=== PATIENT | female | born 1980 | race Caucasian/White ===

== ENCOUNTER 2018-04-11 07:18 | Inpatient (IN) | payer BC ==
[~2018-04-11] VITALS: Ht 177.8 cm; Wt 108.6 kg
[2018-04-11] VITALS (42 sets, daily range): BP systolic 100–139; BP diastolic 53–89; PULSE 67–95; TEMP 97.3–98.2
[2018-04-11] MEDS ORDERED: SINGULAIR 110 MG/TAB PO (07:44)
[2018-04-11] MEDS ORDERED: CONCEPT DHA1 CAP PO (07:45)
[2018-04-11] MEDS ORDERED: WELLBUTRIN XL300 M1 PO (07:45)
[2018-04-11 08:24] LABS: BASO # 0.1 (0.0-0.2); BASO % 0.8 % (0.0-2.0); EOS # 0.4 (0.0-0.7); EOS % 6.5 % (0-4.0); GRAN % 50.5 % (42.2-75.2); LYMPH # 1.7 (1.2-3.4); LYMPH % 28.3 % (20.0-51.0); MEAN CELL VOLUME 88 fl (80.0-100.0); MEAN CORPUSCULAR HGB CONC 33 g/dl (33.0-37.0); MEAN PLATELET VOLUME 9.9 fl (7.4-10.4); MONO # 0.8 (0.1-0.6); MONO % 12.6 % (1.7-9.3); PLATELET COUNT 242 K/mm3 (130-400); RED BLOOD COUNT 3.46 M/mm3 (4.10-5.30); REDCELL DISTRIBUTION WIDTH-CV 13.9 % (11.5-14.5)
[2018-04-11 08:32] LABS: HEMATOCRIT 30.4 % (37.0-47.0); HEMOGLOBIN 9.9 g/dl (12.5-16.0); MEAN CORPUSCULAR HEMOGLOBIN 29 pg (27.0-31.0)
[2018-04-12 04:43] VITALS: BP 102/58; PULSE 74; TEMP 97.6
[2018-04-12 07:30] VITALS: BP 105/48; PULSE 84; TEMP 98.3
[2018-04-12 11:25] VITALS: BP 110/56; PULSE 68; TEMP 98.5
[2018-04-12] MEDS ORDERED: IBU800 M1 PO (11:46)
[2018-04-12 19:52] VITALS: BP 116/56; PULSE 80; TEMP 97.9
[2018-04-13 08:10] VITALS: BP 114/69; PULSE 81; TEMP 97.6
== END 2018-04-13 16:47 | disposition home or self-care (01) | DRG 807 ==
LOC: LDR 07:18 → OB 18:09
PROVIDERS: Obstetrics & Gynecology
PROC: 10E0XZZ Delivery of Products of Conception, External Approach (ICD-10-PCS; principal; 2018-04-11)
PROC: 3E033VJ Introduction of Other Hormone into Peripheral Vein, Percutaneous Approach (ICD-10-PCS; 2018-04-11)
PROC: 10907ZC Drainage of Amniotic Fluid, Therapeutic from Products of Conception, Via Natural or Artificial Opening (ICD-10-PCS; 2018-04-11)
DX: O69.81X0 Labor and delivery complicated by cord around neck, without compression, not applicable or unspecified (principal); Z37.0 Single live birth; Z3A.39 39 weeks gestation of pregnancy; O99.344 Other mental disorders complicating childbirth; F32.9 Major depressive disorder, single episode, unspecified; J45.909 Unspecified asthma, uncomplicated; Z28.21 Immunization not carried out because of patient refusal
CPT/HCPCS: J2590; J2795; J7120

== ENCOUNTER 2020-09-14 08:52 | Day surgery (SDC) | payer BC ==
[~2020-09-14] VITALS: Ht 177.8 cm; Wt 117.2 kg
[~2020-09-14 08:52] MED LIST: CONCEPT DHA1 CAP PO; IBU800 M1 PO; SINGULAIR 110 MG/TAB PO; WELLBUTRIN XL300 M1 PO
[2020-09-14 10:40] VITALS: BP 92/65; PULSE 78; TEMP 97.2
--- NOTE | 2020-09-14 10:40 | NUR ---
Pt to GI bay 1 via cart from ENDO. Pt drowsy, but awake. Pt ambulates to recliner with stand by assistance x2. Denies pain or nausea. Water and muffin given per pt request. Call light within reach.
[2020-09-14 10:49] VITALS: BP 105/65; PULSE 68; TEMP 97.6
[2020-09-14 10:55] VITALS: BP 90/64; PULSE 76
--- NOTE | 2020-09-14 10:55 | NUR ---
Pt toleratin po food and fluids without difficulties. Will continue to monitor. Call light within reach.
[2020-09-14 11:10] VITALS: BP 103/55; PULSE 68
--- NOTE | 2020-09-14 11:10 | NUR ---
into see pt and . Call light within reach.
[2020-09-14 11:25] VITALS: BP 105/76; PULSE 65
--- NOTE | 2020-09-14 11:25 | NUR ---
Pt continues to rest. Denies needs. Call light within reach.
--- NOTE | 2020-09-14 11:40 | NUR ---
IV site discontinued with all parts intact. Discharge instructions reviewed. Pt voices understanding. Pt up to dress. Call light within reach.
--- NOTE | 2020-09-14 11:55 | NUR ---
Pt escorted to private car via wheel chair. Pt accompanied home by her .
== END 2020-09-14 11:55 | disposition home or self-care (01) ==
LOC: SDCO 08:52
DX: K21.00 Gastro-esophageal reflux disease with esophagitis, without bleeding (principal); K22.2 Esophageal obstruction; K44.9 Diaphragmatic hernia without obstruction or gangrene; J45.909 Unspecified asthma, uncomplicated; R78.9 Finding of unspecified substance, not normally found in blood; F32.9 Major depressive disorder, single episode, unspecified; Z79.899 Other long term (current) drug therapy; Z20.822 Contact with and (suspected) exposure to COVID-19; Z90.49 Acquired absence of other specified parts of digestive tract
CPT/HCPCS: J2704; J7120

== ENCOUNTER 2023-11-07 07:48 | Day surgery (SDC) | payer BC ==
[~2023-11-07] VITALS: Ht 177.8 cm; Wt 94.4 kg
[~2023-11-07 07:48] MED LIST changes: +LR 1,000 ML IV SCH; +Ondansetron 4 MG/2 ML VIAL IV PRN
[2023-11-07] MEDS ORDERED: WELLBUTRIN XL300 M1 PO (08:15)
[2023-11-07] MEDS ORDERED: MULTI VITAMINS1 TAB PO (08:16)
[2023-11-07] MEDS ORDERED: ADIPEX-P37.5 M2 PO (08:16)
[2023-11-07 09:01] VITALS: BP 114/78; PULSE 66; TEMP 98.5
[2023-11-07 11:18] VITALS: BP 108/81; PULSE 68; TEMP 98.1
[2023-11-07 11:30] VITALS: BP 112/76; PULSE 68
[2023-11-07 11:45] VITALS: BP 114/78; PULSE 66
--- NOTE | 2023-11-07 11:55 | NUR ---
1118 RETURNS TO ROOM 4 PER CART. AWAKE, ALERT, RESP UNLABORED. AMBULATES TO RECLINER WITH STANDBY ASSIST. DENIES NAUSEA OR ABD PAIN. VITAL SIGNS OBTAINED. CALL LIGHT AT SIDE. IN ROOM. 1130 TOLERATES PO WATER AND MUFFIN WITHOUT NAUSEA 1143 DR CORTEZ HERE TO VISIT WITH PATIENT 1145 DISCHARGE INSTRUCTIONS REVIEWED. PATIENT VERBALIZES UNDERSTANDING. COPY PROVIDED IN DISCHARGE FOLDER 1150 DRESSES SELF
== END 2023-11-07 11:57 | disposition home or self-care (01) ==
LOC: SDCO 07:48
DX: Z12.11 Encounter for screening for malignant neoplasm of colon (principal); K63.5 Polyp of colon; E66.9 Obesity, unspecified
CPT/HCPCS: J2704; J7120